=== PATIENT | male | born 1965 | race African-American/Black ===

== ENCOUNTER 2017-12-16 13:44 | Emergency (ER) | payer OTHER ==
[~2017-12-16] VITALS: Ht 182.9 cm; Wt 86.2 kg
[2017-12-16 14:21] VITALS: BP 156/104
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
[2017-12-16] MEDS ORDERED: ROBAXIN500 MG PO (14:48)
[2017-12-16] MEDS ORDERED: TYLENOL EXTRA500 MG ORAL (14:48)
[2017-12-16 15:05] VITALS: BP 156/104
== END 2017-12-16 15:40 | disposition home or self-care (01) ==
LOC: EDSEX 13:44 → EDBD 13:44 → EMR 15:39
DX: R51 Headache (principal); S16.1XXA Strain of muscle, fascia and tendon at neck level, initial encounter; V43.52XA Car driver injured in collision with other type car in traffic accident, initial encounter; Y92.410 Unspecified street and highway as the place of occurrence of the external cause
CPT/HCPCS: 99284